=== PATIENT | male | born 1955 | race Caucasian/White ===

== ENCOUNTER 2020-07-28 22:33 | Emergency (ER) | payer MEDICAID ==
[2020-07-28] MEDS ORDERED: Simethicone 80 MG Tab.Chew PO ONE (23:07)
--- NOTE | 2020-07-28 23:10 | EDM.PDOC ---
ED HPI GENERAL MEDICAL PROBLEM - General Chief Complaint: Cardiovascular Problem Stated Complaint: CHEST PAIN Time Seen by Provider: 07/28/20 22:54 Source of Information: Reports: Patient, Family, Old Records, RN Notes Reviewed History Limitations: Reports: No Limitations - History of Present Illness INITIAL COMMENTS - FREE TEXT/NARRATIVE: 64-year-old gentleman presents emergency department a complaint of defibrillator discharge, he has a [employer] AICD states it is discharged 4 times since 9:00 this evening was approximately 2-hour time spent, he is not have any chest pain now does not have a sore chest no nausea vomiting shortness of breath no GI symptomatologies he states he was just sitting watching TV when it discharged recently had an ablation March 2020 denies pain Pain Score (Numeric/FACES): 0 - Related Data Allergies Allergy/AdvReac Type Severity Reaction Status Date / Time morphine Allergy Vomiting Verified 07/28/20 22:47 Home Meds: Home Meds Aspirin [Adult Low Dose Aspirin EC] 81 mg PO DAILY 07/02/18 [History] Clopidogrel Bisulfate [Clopidogrel] 75 mg PO DAILY 07/02/18 [History] Lisinopril 2.5 mg PO BID 07/02/18 [History] Metoprolol Succinate 50 mg PO BID 07/02/18 [History] Sotalol [Betapace] 60 mg PO BID 07/02/18 [History] atorvaSTATin Calcium [Atorvastatin Calcium] 40 mg PO BEDTIME 07/02/18 [History] Furosemide [Lasix] 20 mg PO ASDIRECTED PRN 07/29/20 [History] Tamsulosin [Flomax] 0.4 mg PO DAILY 07/29/20 [History] methIMAzole [Methimazole] 5 mg PO BID 07/29/20 [History] Past Medical History HEENT History: Reports: Cataract, Hard of Hearing, Impaired Vision Cardiovascular History: Reports: CAD, High Cholesterol, Hypertension, PA Gastrointestinal History: Reports: Hiatal Hernia Musculoskeletal History: Reports: Fracture Other Musculoskeletal History: bilateral ankle fx jaw. ribs fx Endocrine/Metabolic History: Reports: Hypothyroidism, Obesity/BMI 30+ - Infectious Disease History Infectious Disease History: Reports: Chicken Pox, Measles, Mumps - Past Surgical History HEENT Surgical History: Reports: Adenoidectomy, Myringotomy w Tube(s), Tonsillectomy GI Surgical History: Reports: Hernia, Inguinal, Other (See Below) Other GI Surgeries/Procedures: hiatial hernia Social & Family History - Tobacco Use Tobacco Use Status *Q: Never Tobacco User - Caffeine Use Caffeine Use: Reports: Soda - Recreational Drug Use Recreational Drug Use: No ED ROS GENERAL - Review of Systems Review Of Systems: See Below Constitutional: Reports: No Symptoms HEENT: Reports: No Symptoms Respiratory: Reports: No Symptoms Cardiovascular: Reports: Other (Defibrillator discharge) GI/Abdominal: Reports: No Symptoms : Reports: No Symptoms ED EXAM, GENERAL - Physical Exam Exam: See Below Exam Limited By: No Limitations General Appearance: Alert, WD/WN, No Apparent Distress Respiratory/Chest: No Respiratory Distress, Lungs Clear, Normal Breath Sounds, No Accessory Muscle Use, Chest Non-Tender Cardiovascular: Regular Rate, Rhythm, No Murmur GI/Abdominal: Soft, Non-Tender Course - Vital Signs Last Recorded V/S: Last Vital Signs Temp 97.4 F 07/28/20 22:46 Pulse 68 07/28/20 23:30 Resp 14 07/28/20 23:30 BP 117/70 07/28/20 23:30 Pulse Ox 97 07/28/20 23:30 - Orders/Labs/Meds Orders: Active Orders 24 hr Category Date Time Status Cardiac Monitoring [RC] .As Directed Care 07/28/20 23:07 Active EKG Documentation Completion [RC] ASDIRECTED Care 07/28/20 23:08 Active Peripheral IV Care [RC] . DIRECTED Care 07/29/20 00:49 Ordered Chest 2V [CR] Stat Exams 07/28/20 23:08 Taken Sodium Chloride 0.9% [Saline Flush] Med 07/29/20 00:49 Ordered 10 ml FLUSH ASDIRECTED PRN Peripheral IV Insertion Adult [OM.PC] Urgent Oth 07/29/20 00:49 Ordered EKG 12 Lead [EK] Stat Ther 07/28/20 23:08 Ordered Medication Orders Sodium Chloride (Saline Flush) 10 ml FLUSH ASDIRECTED PRN PRN Reason: Keep Vein Open Labs: Laboratory Tests 07/28/20 07/28/20 Range/Units 23:20 23:20 WBC 5.2 (4.5-11.0) K/uL RBC 4.95 (4.30-5.90) M/uL Hgb 14.2 (12.0-15.0) g/dL Hct 44.4 (40.0-54.0) % MCV 90 (80-98) fL MCH 29 (27-31) pg MCHC 32 (32-36) % Plt Count 149 L (150-400) K/uL Neut % (Auto) 75 H (36-66) % Lymph % (Auto) 15 L (24-44) % [place] % (Auto) 7 H (2-6) % Eos % (Auto) 2 (2-4) % Baso % (Auto) 1 (0-1) % Sodium 142 (140-148) mmol/L Potassium 4.1 (3.6-5.2) mmol/L Chloride 105 (100-108) mmol/L Carbon Dioxide 28 (21-32) mmol/L Anion Gap 9.2 (5.0-14.0) mmol/L BUN 16 (7-18) mg/dL Creatinine 1.4 H (0.8-1.3) mg/dL Est Cr Clr Drug Dosing 59.28 mL/min Estimated GFR (MDRD) 51 L (>60) Glucose 151 H (74-106) mg/dL Calcium 8.4 L (8.5-10.1) mg/dL Total Bilirubin 1.1 H (0.2-1.0) mg/dL AST 22 (15-37) U/L ALT 37 (12-78) U/L Alkaline Phosphatase 117 H (46-116) U/L Troponin I 0.443 H* (0.000-0.056) ng/mL Total Protein 6.0 L (6.4-8.2) g/dL Albumin 3.0 L (3.4-5.0) g/dL Globulin 3.0 (2.3-3.5) g/dL Albumin/Globulin Ratio 1.0 L (1.2-2.2) Meds: Medications Generic Name Dose Route Start Last Admin Trade Name Freq PRN Reason Stop Dose Admin Sodium Chloride 10 ml 07/29/20 00:49 Saline Flush FLUSH ASDIRECTED PRN Keep Vein Open Discontinued Medications Generic Name Dose Route Start Last Admin Trade Name Freq PRN Reason Stop Dose Admin Acetaminophen 650 mg 07/29/20 00:49 Tylenol PO 07/29/20 00:50 NOW ONE Simethicone 160 mg 07/28/20 23:07 07/28/20 23:13 Simethicone PO 07/28/20 23:08 160 mg ONETIME ONE Administration Departure - Departure Time of Disposition: 00:52 Disposition: DC/Tfer to Acute Hospital 02 Reason for Transfer *Q: Other Condition: Poor Clinical Impression: Defibrillator discharge Referrals: PCP,None [Primary Care Provider] - Forms: ED Department Discharge Sepsis Event Note (ED) - Evaluation Sepsis Screening Result: No Definite Risk - Focused Exam Vital Signs: Vital Signs Temp Pulse Resp BP Pulse Ox 07/28/20 23:30 68 14 117/70 97 07/28/20 22:46 97.4 F 76 20 138/77 96 07/28/20 22:43 97.4 F 76 20 138/77 96 - My Orders Last 24 Hours: My Active Orders 07/28/20 23:07 Cardiac Monitoring [RC] .As Directed 07/28/20 23:08 EKG Documentation Completion [RC] ASDIRECTED Chest 2V [CR] Stat EKG 12 Lead [EK] Stat 07/29/20 00:49 Peripheral IV Care [RC] . DIRECTED Sodium Chloride 0.9% [Saline Flush] 10 ml FLUSH ASDIRECTED PRN Peripheral IV Insertion Adult [OM.PC] Urgent - Assessment/Plan Last 24 Hours: My Active Orders 07/28/20 23:07 Cardiac Monitoring [RC] .As Directed 07/28/20 23:08 EKG Documentation Completion [RC] ASDIRECTED Chest 2V [CR] Stat EKG 12 Lead [EK] Stat 07/29/20 00:49 Peripheral IV Care [RC] . DIRECTED Sodium Chloride 0.9% [Saline Flush] 10 ml FLUSH ASDIRECTED PRN Peripheral IV Insertion Adult [OM.PC] Urgent Plan: Assessment Acuity = acute Site and laterality = defibrillator discharge Etiology = unknown Manifestations = none Location of injury = Home Lab values = CBC unremarkable creatinine elevated 1.4 consistent with chronic renal failure stage G3 a troponin elevated 0.443 unclear etiology, EKG demonstrates paced rhythm no ST elevations or depressions similar to prior EKGs chest x-ray shows no acute process official read radiologist pending Plan Call discussed the case with Dr. Alvarado hospitalist on-call [facility] also discussed case with cardiology, recommended admission did kindly except the patient in transport did recommend a loading dose amiodarone 150 mg however patient refused this medication. Will be transported via EMS ground This note was dictated using [employer] voice recognition software please call with any questions on syntax or grammar.
[2020-07-29] MEDS ORDERED: Acetaminophen 325 MG Tab PO ONE (00:49)
[2020-07-29] MEDS ORDERED: Sodium Chloride 0.9% 10 ML Syringe FLUSH PRN (00:49)
--- NOTE | 2020-07-29 09:12 | CR ---
CHEST: 2 view CLINICAL HISTORY:Chest pain COMPARISON:August 2019 FINDINGS: Heart is mildly enlarged. Pulmonary vascularity is normal. There are atherosclerotic changes in the aorta.. There is a permanent cardiac pacer/defibrillator. No infiltrate effusion or pneumothorax seen. Impression: Mild cardiomegaly Permanent cardiac pacer/defibrillator No acute cardiopulmonary process
== END 2020-07-29 01:40 ==
LOC: JP.ED 22:33
DX: T82.199A Other mechanical complication of unspecified cardiac device, initial encounter (principal); I25.10 Atherosclerotic heart disease of native coronary artery without angina pectoris; E78.00 Pure hypercholesterolemia, unspecified; I10 Essential (primary) hypertension; E66.9 Obesity, unspecified; I25.2 Old myocardial infarction; Z88.5 Allergy status to narcotic agent; Z79.82 Long term (current) use of aspirin; Z79.02 Long term (current) use of antithrombotics/antiplatelets; Z79.899 Other long term (current) drug therapy; Z68.41 Body mass index [BMI] 40.0-44.9, adult
CPT/HCPCS: 36415; 71046; 71046-26; 80053; 84484; 85025; 93005; 93010; 99285; 99285-25; A9270-GY